=== PATIENT | male | born 1965 | race African-American/Black ===

== ENCOUNTER 2018-02-20 11:35 | Inpatient (IN) | payer OTHER ==
[2018-02-20] VITALS (12 sets, daily range): BP systolic 90–187; BP diastolic 57–140
[~2018-02-20] VITALS: Ht 180.3 cm; Wt 126.0 kg
[~2018-02-20 11:35] MED LIST: AMLODIPINE BESYL5 M1 PO; CARVEDILOL6.25 M1 PO; HUMULIN 70/30 KW3 ML SC; HUMULIN R100 U/1 M1 SC; LOVASTATIN20 MG PO; [UNRECOGNIZED DRUG - OTHER]
[2018-02-20 12:52] LABS: BASOPHIL % 0.3 % (0-2); PLATELET COUNT 215 x10^3mcL (130-400)
[2018-02-20 13:11] LABS: RED CELL DISTRIBUTION WIDTH 15.6 % (11.5-14.5)
[2018-02-20 13:20] LABS: CALCIUM 8.1 mg/dL (8.5-10.1); CARBON DIOXIDE 27.7 mmol/L (21-32); CREATININE SERUM 2.3 mg/dL (0.7-1.3); POTASSIUM SERUM 4.6 mmol/L (3.5-5.1)
[2018-02-20] MEDS ORDERED: XANAX0.5 MG PO (13:20)
[2018-02-20] MEDS ORDERED: KLOR-CON 88 MEQ PO (13:20)
[2018-02-20] MEDS ORDERED: ALLOPURINOL300 M1 PO (13:21)
[2018-02-20] MEDS ORDERED: TES100 PO (13:21)
[2018-02-20] MEDS ORDERED: AMBIEN5 MG PO (13:22)
[2018-02-20] MEDS ORDERED: CORE25 PO (13:22)
[2018-02-20] MEDS ORDERED: GOOD SENSE OMEP20 MG PO (13:22)
[2018-02-20] MEDS ORDERED: METOCLOPRAMIDE10 M2 PO (13:22)
[2018-02-20] MEDS ORDERED: PREDNISONE5 MG PO (13:23)
[2018-02-20] MEDS ORDERED: LORAZEPAM1 MG PO (13:23)
[2018-02-20] MEDS ORDERED: LISINOPRIL20 MG PO (13:23)
[2018-02-20 13:24] LABS: BILIRUBIN TOTAL 0.57 mg/dL (0.20-1.00); TOTAL PROTEIN, SERUM 6.7 g/dL (6.4-8.2); URIC ACID 5.4 mg/dL (3.5-7.2)
[2018-02-20] MEDS ORDERED: VITAMIN D50000 I4 PO (13:24)
[2018-02-20] MEDS ORDERED: PEPCID20 MG PO (13:25)
[2018-02-20] MEDS ORDERED: TORSEMIDE20 MG PO ×2 (13:25)
[2018-02-20] MEDS ORDERED: LIPITOR80 MG PO (13:25)
[2018-02-20] MEDS ORDERED: Z5 PO (13:26)
[2018-02-20] MEDS ORDERED: K-TAB10 MEQ PO (13:27)
[2018-02-20 18:55] LABS: BILIRUBIN TOTAL 0.61 mg/dL (0.20-1.00); CARBON DIOXIDE 22.7 mmol/L (21-32); CREATININE SERUM 2.2 mg/dL (0.7-1.3); MAGNESIUM 1.3 mg/dL (1.8-2.4); PHOSPHOROUS 2.7 mg/dL (2.5-4.9); POTASSIUM SERUM 3.3 mmol/L (3.5-5.1)
[2018-02-20 18:58] LABS: ALBUMIN 2.2 g/dL (3.4-5.0); TOTAL PROTEIN, SERUM 4.5 g/dL (6.4-8.2)
[2018-02-20 18:59] LABS: CALCIUM 5.9 mg/dL (8.5-10.1)
[2018-02-20 20:07] LABS: AMPHETAMINE QUAL UR NONE DETECTED (NEG <=1000)
[2018-02-21] VITALS (18 sets, daily range): BP systolic 79–122; BP diastolic 49–80; Ht 180.3 cm; Wt 126.0 kg
[2018-02-21 05:42] LABS: BASOPHIL % 0.2 % (0-2); PLATELET COUNT 206 x10^3mcL (130-400); RED CELL DISTRIBUTION WIDTH 15.6 % (11.5-14.5)
[2018-02-21 06:37] LABS: CALCIUM 7.5 mg/dL (8.5-10.1); CARBON DIOXIDE 26.9 mmol/L (21-32); CREATININE SERUM 3.4 mg/dL (0.7-1.3); MAGNESIUM 1.7 mg/dL (1.8-2.4); PHOSPHOROUS 3.2 mg/dL (2.5-4.9); POTASSIUM SERUM 4.6 mmol/L (3.5-5.1)
[2018-02-21 18:01] LABS: BILIRUBIN TOTAL 0.58 mg/dL (0.20-1.00); CARBON DIOXIDE 21.4 mmol/L (21-32); CREATININE SERUM 3.1 mg/dL (0.7-1.3); MAGNESIUM 1.4 mg/dL (1.8-2.4)
[2018-02-21 18:07] LABS: ALBUMIN 1.7 g/dL (3.4-5.0); CALCIUM 5.6 mg/dL (8.5-10.1); POTASSIUM SERUM 2.5 mmol/L (3.5-5.1); TOTAL PROTEIN, SERUM 4.1 g/dL (6.4-8.2)
[2018-02-22] VITALS (9 sets, daily range): BP systolic 80–116; BP diastolic 53–87
[2018-02-22 00:26] LABS: ALBUMIN 2.3 g/dL (3.4-5.0); BILIRUBIN TOTAL 0.9 mg/dL (0.20-1.00); CALCIUM 7.3 mg/dL (8.5-10.1); CARBON DIOXIDE 26.9 mmol/L (21-32); MAGNESIUM 1.9 mg/dL (1.8-2.4); PHOSPHOROUS 3.6 mg/dL (2.5-4.9); POTASSIUM SERUM 4.2 mmol/L (3.5-5.1); TOTAL PROTEIN, SERUM 5.5 g/dL (6.4-8.2)
[2018-02-22 00:27] LABS: CREATININE SERUM 4.5 mg/dL (0.7-1.3)
[2018-02-22 05:27] LABS: BASOPHIL % 0.1 % (0-2); PLATELET COUNT 189 x10^3mcL (130-400)
[2018-02-22 05:46] LABS: BILIRUBIN TOTAL 0.69 mg/dL (0.20-1.00); CALCIUM 7.2 mg/dL (8.5-10.1); CARBON DIOXIDE 28.4 mmol/L (21-32); MAGNESIUM 1.9 mg/dL (1.8-2.4); PHOSPHOROUS 3.6 mg/dL (2.5-4.9); POTASSIUM SERUM 3.9 mmol/L (3.5-5.1)
[2018-02-22 05:47] LABS: ALBUMIN 2.2 g/dL (3.4-5.0); TOTAL PROTEIN, SERUM 5.4 g/dL (6.4-8.2)
[2018-02-22 05:48] LABS: CREATININE SERUM 4.6 mg/dL (0.7-1.3)
[2018-02-22 05:55] LABS: RED CELL DISTRIBUTION WIDTH 15.9 % (11.5-14.5)
[2018-02-22 12:52] LABS: BILIRUBIN TOTAL 0.9 mg/dL (0.20-1.00); CALCIUM 7.2 mg/dL (8.5-10.1); CARBON DIOXIDE 24.9 mmol/L (21-32); POTASSIUM SERUM 4.3 mmol/L (3.5-5.1)
[2018-02-22 12:58] LABS: ALBUMIN 2.1 g/dL (3.4-5.0); CREATININE SERUM 5.3 mg/dL (0.7-1.3); TOTAL PROTEIN, SERUM 5.7 g/dL (6.4-8.2)
== END 2018-02-22 13:29 | disposition expired ==
LOC: ED 11:35 → DU 14:13 → IC 14:13
PROVIDERS: Emergency Medicine; Family Medicine
PROC: 5A12012 Performance of Cardiac Output, Single, Manual (ICD-10-PCS; principal; 2018-02-20)
PROC: 02HV33Z Insertion of Infusion Device into Superior Vena Cava, Percutaneous Approach (ICD-10-PCS; 2018-02-20)
PROC: B548ZZA Ultrasonography of Superior Vena Cava, Guidance (ICD-10-PCS; 2018-02-20)
PROC: 04HY32Z Insertion of Monitoring Device into Lower Artery, Percutaneous Approach (ICD-10-PCS; 2018-02-20)
PROC: 4A133B1 Monitoring of Arterial Pressure, Peripheral, Percutaneous Approach (ICD-10-PCS; 2018-02-20)
PROC: 4A133J1 Monitoring of Arterial Pulse, Peripheral, Percutaneous Approach (ICD-10-PCS; 2018-02-20)
PROC: 5A1945Z Respiratory Ventilation, 24-96 Consecutive Hours (ICD-10-PCS; 2018-02-20)
PROC: 0BH17EZ Insertion of Endotracheal Airway into Trachea, Via Natural or Artificial Opening (ICD-10-PCS; 2018-02-20)
DX: I21.4 Non-ST elevation (NSTEMI) myocardial infarction (principal); J96.01 Acute respiratory failure with hypoxia; J96.02 Acute respiratory failure with hypercapnia; N17.0 Acute kidney failure with tubular necrosis; E43 Unspecified severe protein-calorie malnutrition; I50.43 Acute on chronic combined systolic (congestive) and diastolic (congestive) heart failure; M62.82 Rhabdomyolysis; G93.1 Anoxic brain damage, not elsewhere classified; I25.10 Atherosclerotic heart disease of native coronary artery without angina pectoris; Z66 Do not resuscitate; E83.39 Other disorders of phosphorus metabolism; I49.01 Ventricular fibrillation; E83.42 Hypomagnesemia; E87.6 Hypokalemia; R57.0 Cardiogenic shock; E78.00 Pure hypercholesterolemia, unspecified; E11.65 Type 2 diabetes mellitus with hyperglycemia; I11.0 Hypertensive heart disease with heart failure; Z86.711 Personal history of pulmonary embolism; Z95.1 Presence of aortocoronary bypass graft; Z88.0 Allergy status to penicillin; Z88.8 Allergy status to other drugs, medicaments and biological substances; Z82.49 Family history of ischemic heart disease and other diseases of the circulatory system; I25.2 Old myocardial infarction; Z95.5 Presence of coronary angioplasty implant and graft; Z68.35 Body mass index [BMI] 35.0-35.9, adult
CPT/HCPCS: 36556; 36600; 82962; 83880; A4628; C9113; J1265; J1642; J1644; J2250; J3010; J3475; J3480; J3490; J7030; J7040; J7620; Q0092